=== PATIENT | female | born 1975 | race Caucasian/White ===

== ENCOUNTER 2020-12-19 02:40 | Emergency (ER) | payer OTHER ==
[~2020-12-19] VITALS: Ht 165.1 cm; Wt 97.3 kg
[2020-12-19] MEDS ORDERED: KETOROLAC 30 MG/ML VIAL. IM ONE (03:15)
[2020-12-19] MEDS ORDERED: ONDANSETRON ODT 4 MG TAB.RAPDIS. PO ONE (03:45)
--- NOTE | 2020-12-19 03:56 | RAD ---
INDICATION: Reason: BACK PAIN / Spl. Instructions: / History: COMPARISON: None. IMPRESSION: Lumbar spine: 3 views obtained. Inferior vena cava filter is seen. Calcific atherosclerosis. Degenera tive changes of the lumbar spine with osteophyte formation at the vertebral body endplates as well as facet hypertrophy. No acute fracture or dislocation is identified. Electronically signed by: Rosales Del Valle MD (12/19/2020 3:53 AM) [id number]
[2020-12-19] MEDS ORDERED: HYDR-2759 PO (04:03)
[2020-12-19 04:14] VITALS: BP 127/91
--- NOTE | 2020-12-19 04:19 | PHYS DOC ---
Past Medical History Past Medical History: No Pertinent History Past Surgical History: Cholecystectomy, , Hysterectomy, Knee Replacement, Other Additional Past Surgical Histo: GASTRIC BYPASS, GASTRIC BYPASS REVISION, PLATE IN LEGS Smoking Status: Current Every Day Smoker Alcohol Use: None General Adult EDM: Chief Complaint: LOWER BACK PAIN OR INJURY HPI: HPI: Patient is a 45 year old female presents with the chief complaint of back pain. Onset of pain x 2 days-- progressively worse since onset. Location of pain is midline L3-L4. She denies any trauma. No associated loss of bowel or bladder or saddle anesthesia. Review of Systems: Review of Systems: Constitutional: Denies fever or chills. [] Eyes: Denies change in visual acuity. [] HENT: Denies nasal congestion or sore throat. [] Respiratory: Denies cough or shortness of breath. [] Cardiovascular: Denies chest pain or edema. [] GI: Denies abdominal pain, nausea, vomiting, bloody stools or diarrhea. [] : Denies dysuria. [] Musculoskeletal: positive back pain Integument: Denies rash. [] Neurologic: Denies headache, focal weakness or sensory changes. [] Endocrine: Denies polyuria or polydipsia. [] Lymphatic: Denies swollen glands. [] Psychiatric: Denies depression or anxiety. [] Heart Score: C/O Chest Pain: N/A Risk Factors: Risk Factors: DM, Current or recent (<one month) smoker, HTN, HLP, family history of CAD, obesity. Risk Scores: Score 0 - 3: 2.5% MACE over next 6 weeks - Discharge Home Score 4 - 6: 20.3% MACE over next 6 weeks - Admit for Clinical Observation Score 7 - 10: 72.7% MACE over next 6 weeks - Early Invasive Strategies Current Medications: Current Medications Medications (Trade) Dose Ordered Sig/Marcella Start Time Stop Time Status Last Admin Dose Admin Ketorolac Tromethamine (Toradol 30mg Vial) 30 mg 1X ONCE 12/19/20 03:15 12/19/20 03:16 DC 12/19/20 03:43 30 MG Ondansetron HCl (Zofran Odt) 4 mg 1X ONCE 12/19/20 03:45 12/19/20 03:46 DC 12/19/20 03:43 4 MG Allergies: Allergies: Allergies Coded Allergies Type Severity Reaction Last Updated Verified Iodinated Contrast Media Allergy Unknown 12/19/20 Yes Iodine and Iodide Containing Produc Allergy Unknown 12/19/20 Yes iodine Allergy Unknown 12/19/20 Yes Physical Exam: PE: General: alert, no acute distress. Skin: warm, dry and intact. Head:: Normocephalic, atraumatic. Neck: Trachea midline. Eyes: EOMI, Normal conjunctiva, No drainage CARDIOVASCULAR: Regular rate and rhythm RESPIRATORY: No respiratory distress Back: Full range of motion. MUSCULOSKELETAL: Full range of motion of bilateral upper and lower extremities. tenderness to palpation l4-l5 mid-line no step off or deformities GASTROINTESTINAL: Abdomen soft without rebound or guarding. NEUROLOGICAL: Alert and noted to person, place and time. No neurological deficits observed Psychiatric: Cooperative. Normal judgment Current Patient Data: Vital Signs: Vital Signs Date Time Temp Pulse Resp B/P (MAP) Pulse Ox O2 Delivery O2 Flow Rate FiO2 12/19/20 03:47 78 18 124/93 (103) 97 Room Air 12/19/20 02:45 97.3 97.3 EKG: EKG: [] Radiology/Procedures: Radiology/Procedures: [] Impression: IMPRESSION: Lumbar spine: 3 views obtained. Inferior vena cava filter is seen. Calcific atherosclerosis. Degenerative changes of the lumbar spine with osteophyte formation at the vertebral body endplates as well as facet hypertrophy. No acute fracture or dislocation is identified. Course & Med Decision Making: Course & Med Decision Making Pertinent Labs and Imaging studies reviewed. (See chart for details) []Treated with toradol. Discharged home on norco. Follow up with PCP. Diana Disclaimer: Diana Disclaimer: This electronic medical record was generated, in whole or in part, using a voice recognition dictation system. Departure Departure Impression: Primary Impression: Back pain Disposition: HOME / SELF CARE / HOMELESS Condition: STABLE Patient Instructions: Back Pain, Adult Scripts Hydrocodone/Acetaminophen (Hydrocodone-Acetamin 5-325 mg) 1 Each Tablet 1 EACH PO Q4-6HRS, #20 TAB Prov: BRIGITTE GARRETT DO 12/19/20 BRIGITTE GARRETT DO December 19, 2020 04:19
== END 2020-12-19 04:23 | disposition home or self-care (01) ==
LOC: ER 02:40
DX: M54.5 Low back pain (principal); Z90.49 Acquired absence of other specified parts of digestive tract; Z90.710 Acquired absence of both cervix and uterus; F17.200 Nicotine dependence, unspecified, uncomplicated
CPT/HCPCS: 72100; 96372; 99283; J1885